=== PATIENT | female | born 1965 | race Caucasian/White ===

== ENCOUNTER → 2016-10-28 | Outpatient (CLI) | payer SELFPAY ==
[2016-10-28 09:15] LABS: URINE AMPHETAMINES < 1000 (1000ng/ml); URINE BARBITURATES < 200 (200ng/ml); URINE COCAINE < 300 (300ng/ml)
== END | disposition home or self-care (01) ==
LOC: LAB 08:25
PROVIDERS: Internal Medicine
DX: F11.90 Opioid use, unspecified, uncomplicated (principal); M54.6 Pain in thoracic spine

== ENCOUNTER → 2017-11-25 | Outpatient (CLI) | payer SELFPAY | END | disposition home or self-care (01) | LOC: LAB 11:40 | PROVIDERS: Internal Medicine | DX: M54.2 Cervicalgia (principal); M54.6 Pain in thoracic spine; F11.90 Opioid use, unspecified, uncomplicated ==